=== PATIENT | female | born 1930 | race African-American/Black ===

== ENCOUNTER 2021-06-01 10:48 | Emergency (ER) | payer OTHER ==
[~2021-06-01] VITALS: Ht 160 cm; Wt 90.7 kg
[~2021-06-01 10:48] MED LIST: AMLO-121 PO; ASPI-1822 PO; ATOR20TA PO; FOLI1TAB19 PO; GLIP10TA3 PO; SITA50TA3 PO; SPIR25TA PO; VITA1SGL PO
--- NOTE | 2021-06-01 10:52 | NUR ---
BIBA TO BED 10
[2021-06-01 10:53] VITALS: BP 152/96
--- NOTE | 2021-06-01 10:56 | NUR ---
89 Y/O FEMALE BIBA C/O CHEST PAIN XTODAY. PER EMS PT WAS HAVING NON RADIATING CHEST PAIN ON SCENE. NO MEDICATIONS GIVEN. PT DENIES ANY PAIN CURRENTLY. MEDHX: DM, HTN, CHF HOME MEDS: JANUVIA, CARVEDILOL, FUROSEMIDE
--- NOTE | 2021-06-01 11:07 | NUR ---
XRAY AT BEDSIDE
[2021-06-01 11:17] LABS: BASOPHILS % (AUTO) 0.7 % (0.0-2.0); EOSINOPHILS # (AUTO) 0.1 K/uL (0-0.4); EOSINOPHILS % (AUTO) 2.4 % (0.0-4.0); HEMATOCRIT 30.3 % (36-48); LYMPHOCYTES # (AUTO) 0.7 K/uL (2.5-16.5); LYMPHOCYTES % (AUTO) 15.8 % (20.5-51.1); MEAN CORPUSCULAR HEMOGLOBIN 28 pg (27-31); MEAN CORPUSCULAR HGB CONC 33 g/dL (33-37); MEAN CORPUSCULAR VOLUME 85.1 fL (80-94); MONOCYTES # (AUTO) 0.4 K/uL (0.8-1.0); MONOCYTES % (AUTO) 9.4 % (1.7-9.3); NEUTROPHILS # (AUTO) 3.3 K/uL (1.8-7.7); NEUTROPHILS % (AUTO) 71.7 % (42.2-75.2); PLATELET COUNT (AUTO) 137 K/uL (140-450); RED BLOOD CELL COUNT(AUTO) 3.56 MIL/uL (4.20-5.40); RED CELL DISTRIBUTION WIDTH 16.6 % (11.6-13.7); WHITE BLOOD COUNT (AUTO) 4.6 K/uL (4.8-10.8)
--- NOTE | 2021-06-01 11:38 | NUR ---
DR MORALES AT BEDSIDE EXAMINING PT
[2021-06-01 11:43] LABS: ALBUMIN 3.4 g/dL (3.4-5.0); ANION GAP 12.8 (8-16); ASPARTATE AMINOTRANSFERASE 27 U/L (15-37); CARBON DIOXIDE 29.8 mmol/L (21-32); CHLORIDE 105 mmol/L (98-107); GLUCOSE 181 mg/dL (74-106); SODIUM SERUM 145 mmol/L (136-145); TOTAL BILIRUBIN 0.6 mg/dL (0.0-1.0); UREA NITROGEN, BLOOD 19 mg/dL (7-18)
[2021-06-01] MEDS ORDERED: FUROSEMIDE 40 MG/4 ML VIAL IVP ONE ×2 (11:45→11:49)
[2021-06-01 11:49] LABS: POTASSIUM 2.6 mmol/L (3.5-5.1)
[2021-06-01] MEDS ORDERED: POTASSIUM CHLORIDE 10 MEQ TABER PO ONE (12:30)
--- NOTE | 2021-06-01 12:56 | NUR ---
PT HAD 1 VOID, PT CLEANED AND DIAPER CHANGED
--- NOTE | 2021-06-01 13:21 | NUR ---
Patient does not wish to proceed with medical care recommended by DR MORALES. Patient given information related to possible complications, up to and including , which could occur as a result of leaving hospital at this time. Patient verbalizes understanding of risks involved leaving against medical advice. Patient has signed AMA form.
[2021-06-01 13:22] VITALS: BP 151/71
== END 2021-06-01 13:21 | disposition left against medical advice (07) ==
LOC: MED 10:48
DX: I11.0 Hypertensive heart disease with heart failure (principal); Z20.822 Contact with and (suspected) exposure to COVID-19; I50.9 Heart failure, unspecified; R06.00 Dyspnea, unspecified; R60.9 Edema, unspecified; E87.6 Hypokalemia; E11.9 Type 2 diabetes mellitus without complications; Z95.0 Presence of cardiac pacemaker; Z79.84 Long term (current) use of oral hypoglycemic drugs; Z79.82 Long term (current) use of aspirin; Z88.0 Allergy status to penicillin; Z79.899 Other long term (current) drug therapy
CPT/HCPCS: 36415; 71045; 80053; 83880; 84484; 85025; 87426; 93005; 96374; 99285; J1940; Q0092